=== PATIENT | female | born 1995 | race American Indian/Alaskan Native ===

== ENCOUNTER 2018-05-29 10:54 | Inpatient (IN) | payer OTHER ==
[2018-05-29 13:52] LABS: Basophils # (Auto) 0.1 K/mm3 (0.0-0.1); Basophils % (Auto) 0.6 % (0.0-1.8); Eosinophils # (Auto) 0.1 K/mm3 (0.0-0.4); Eosinophils % (Auto) 1.1 % (0.0-4.3); Hematocrit 29.4 % (30.3-42.9); Hemoglobin 10.1 gm/dl (10.1-14.3); Lymphocytes # (Auto) 2.3 K/mm3 (1.2-5.4); Lymphocytes % (Auto) 23.5 % (13.4-35.0); Mean Corpuscular HGB Conc 34 % (30-34); Mean Corpuscular Hemoglobin 28 pg (28-32); Mean Corpuscular Volume 83 fl (79-97); Monocytes # (Auto) 0.5 K/mm3 (0.0-0.8); Monocytes % (Auto) 5.3 % (0.0-7.3); Platelet Count 295 K/mm3 (140-440); Red Blood Count 3.56 M/mm3 (3.65-5.03); Red Cell Distribution Width 15.9 % (13.2-15.2)
--- NOTE | 2018-05-29 15:03 | History and Physical Report ---
History of Present Illness Date of examination: 05/29/18 Date of admission: 05/29/18 10:55 Chief complaint: contractions History of present illness: This is a 22 yo at 37 weeks by US availale here 39 weeks by reported EDC per patient performed at [facility]. SHe has no care. She states that she has had contractions since this am. No other complaints. Denies any leaking nor vaginal bleeding. Past History Past Medical History: no pertinent history Past Surgical History: no surgical history Family/Genetic History: none Social history: single. denies: smoking, alcohol abuse, prescription drug abuse - Obstetrical History : 3 Para: 2 Hx # Term Pregnancies: 2 Number of Pregnancies: 0 Spontaneous Abortions: 0 Induced : 0 Number of Living Children: 2 Medications and Allergies Allergies Allergy/AdvReac Type Severity Reaction Status Date / Time No Known Allergies Allergy Unverified 05/27/13 18:14 Review of Systems All systems: negative Genitourinary: contractions - Vital Signs Vital signs: Vital Signs Pulse BP 82 124/67 05/29/18 12:24 05/29/18 12:24 Temp Pulse Resp BP Pulse Ox 82 124/67 05/29/18 12:24 05/29/18 12:24 - Physical Exam Breasts: Positive: normal Cardiovascular: Regular rate, Normal S1 Lungs: Positive: Clear to auscultation, Normal air movement Abdomen: Positive: normal appearance, soft, distention, normal bowel sounds Genitourinary (Female): Positive: normal external genitalia, normal perenium Vulva: both: normal Vagina: Positive: normal moisture Cervix: Negative: lesion Uterus: Positive: normal size Adnexa: both: normal Anus/Rectum: Positive: normal perianal skin Extremities: Positive: normal Deep Tendon Reflex Grade: Normal +2 - Obstetrical FHR: category 1 Cervical Dilatation: 4 Cervical Effacement Percentage: 80 station: -1 Uterine Contraction Pattern: Regular Uterine Tone Measurement Phase: Contraction Uterine Contraction Intensity: Moderate Results Result Diagrams: 05/29/18 13:31 Abnormal lab results 05/29/18 Range/Units 13:31 RBC 3.56 L (3.65-5.03) M/mm3 Hct 29.4 L (30.3-42.9) % RDW 15.9 H (13.2-15.2) % All other labs normal. Assessment and Plan IUP 37 weeks vertex labs sent ( and drug screen) GBS unknown _ ampicillin ordered stat expect vaginal delivery offer epidural
[2018-05-29] MEDS ORDERED: POLYCILLIN/NS 2 GM/100 ML 2 GM/100 ML BAG IV ONE (15:22)
[2018-05-29] MEDS ORDERED: SUBLIMAZE ONE ×2 (15:22→16:17)
[2018-05-29] MEDS ORDERED: LACTATED RINGERS 1,000 ML ONE (15:22)
[2018-05-29] MEDS ORDERED: PITOCin/NS 20 UNIT/1000ML DRIP 20,000 MILLIUNITS/1,000 ML BAG IV ONE (16:30)
[2018-05-29] MEDS ORDERED: MINERAL OIL ONE (16:30)
[2018-05-29] MEDS ORDERED: BENADRYL PO PRN (16:36)
[2018-05-29] MEDS ORDERED: TORADOL IV PRN (16:36)
[2018-05-29] MEDS ORDERED: MILK OF MAGNESIA PO PRN (16:36)
[2018-05-29] MEDS ORDERED: PHENERGAN PO PRN (16:36)
[2018-05-29] MEDS ORDERED: PHENERGAN PR PRN (16:36)
[2018-05-29] MEDS ORDERED: DULCOLAX PR PRN (16:36)
[2018-05-29] MEDS ORDERED: ZOFRAN IV PRN (16:36)
[2018-05-29] MEDS ORDERED: PERCOCET 5/325 PO PRN (16:36)
[2018-05-29] MEDS ORDERED: TYLENOL PO PRN (16:36)
[2018-05-29] MEDS ORDERED: TUCKS PAD TP PRN (16:36)
[2018-05-29] MEDS ORDERED: NORCO 5/325 PO PRN (16:36)
[2018-05-29] MEDS ORDERED: LANSINOH TP PRN (16:36)
--- NOTE | 2018-05-29 16:47 | Procedure Note ---
OB Delivery Note - Delivery Date of Delivery: 05/29/18 Surgeon: PAO [place] Estimated blood loss: 500cc - Vaginal Delivery presentation: vertex Delivery position: OA Intrapartum events: no care, meconium Delivery induction: none Delivery monitor: none Route of delivery: Delivery placenta: spontaneous Episiotomy: none Delivery laceration: none Anesthesia: none Delivery comments: Patient was noted to be c/c/ +1 station and pushing. She delivered a viable male within sac at 1630 . The cord was clamped and cut and baby handed off to awaiting nurse. The placenta delivered intact meconium stained at 1638 . Apgars 8 and 9. Weight of the baby is 7 pounds 2.7 oz . No lacerations noted. patient tolerated procedure well and bonding with baby. - A at 1 minute: 8 at 5 minutes: 9 Gender: Male
[2018-05-29] MEDS ORDERED: PITOCin/NS 20 UNIT/1000ML DRIP 20 UNITS/1,000 ML BAG IV SCH (17:00)
[2018-05-29] MEDS ORDERED: SODIUM CHLORIDE FLUSH SYRINGE 10 ML IV SCH (17:00)
[2018-05-29] MEDS ORDERED: METHERGINE IM ONE ×2 (17:03→17:05)
[2018-05-29] MEDS: MOTRIN PO SCH ×2 (17:09→23:15)
[2018-05-29 17:52] LABS: Amphetamine Screen,Urine PRESUMPTIVE NEGATIVE; Benzodiazepines Screen,Urine PRESUMPTIVE NEGATIVE; Cocaine Screen,Urine PRESUMPTIVE NEGATIVE; Methadone Screen,Urine PRESUMPTIVE NEGATIVE; Opiate Screen,Urine PRESUMPTIVE NEGATIVE
[2018-05-29 18:07] LABS: Cannabinoid Screen,Urine PRESUMPTIVE POSITIVE
[2018-05-29] MEDS: COLACE PO SCH (23:15)
[2018-05-30 04:24] LABS: Hematocrit 29.2 % (30.3-42.9); Hemoglobin 9.6 gm/dl (10.1-14.3)
[2018-05-30] MEDS: MOTRIN PO SCH ×3 (05:31→23:11)
[2018-05-30] MEDS ORDERED: BOOSTRIX IM ONE (06:00)
--- NOTE | 2018-05-30 07:54 | Ultrasound Report ---
OB ULTRASOUND History no care. Technique: Transabdominal ultrasound with Doppler interrogation. Gestation: Single Position: Cephalic Amniotic Fluid: Normal ABDIAS = 14.0 cm Placenta: Posterior Placental Grade: 3 Heart Rate: 134 BPM Cervical length: 3.7 cm (Normal > 3 cm) NEUROANATOMY VISUALIZED: Choroid Plexus Lateral Ventricle ANATOMY VISUALIZED: Stomach Kidneys Bladder Diaphragm 4 Chamber Heart Heart SPINE VISUALIZED: Longitudinal The following are not demonstrated due to maternal body habitus or lie: Cisterna magnum, cerebellum, 3 vessel cord, umbilical cord insertion, transverse views of the spine BPD: 8.9 cm = 36 w 3 d HC: 33.5 cm = 38 w 2 d AC: 32.7 cm = 36 w 4 d FL: 7.3 cm = 37 w 1 d HC/AC Ratio: 1.02 Cephalic Index: 76.5 Estimated Weight: 3067 grams Clinical age = 39 w 6 d EDC: 05/30/18 US Gest. Age = 37 w 1 d EDC: 06/18/18 IMPRESSION: Viable, single intrauterine as described.
[2018-05-30] MEDS: PRENATAL VITAMIN PO SCH (10:45)
[2018-05-30] MEDS: COLACE PO SCH ×2 (10:45→23:11)
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
[2018-05-30] MEDS ORDERED: M-M-R II VACCINE SUB-Q ONE (16:36)
[2018-05-31] MEDS: MOTRIN PO SCH ×2 (05:26→12:31)
--- NOTE | 2018-05-31 09:48 | Progress Note ---
Assessment and Plan A: PPD#2 s/p at term No care H/o depressions cleared by Psych for outpatient follow up, no suicidal or homicidal ideation P: Routine care. Subjective - Subjective Date of service: 05/31/18 Principal diagnosis: s/p at term, no care Interval history: Pt denies complaints presently. She is smiling during interview. Baby taken to NICU because of jaundice. Patient reports: appetite normal, voiding normally, pain well controlled, ambulating normally [place]: in NICU Objective - Vital Signs Latest vital signs: Vital Signs Temp Pulse Resp BP Pulse Ox 05/30/18 23:34 98.5 F 74 18 118/65 99 Intake and Output 05/30/18 05/31/18 05/31/18 22:59 06:59 14:59 Intake Total 360 240 Balance 360 240 Intake: Oral 240 Intake, Free Water 360 Other: Total, Intake Amount 240 # Voids Void 2 1 - Exam Breasts: Present: deferred Cardiovascular: Present: Regular rate Lungs: Present: Clear to auscultation Abdomen: Present: soft Uterus: Present: fundal height below umbilicus Extremities: Present: edema (trace)
--- NOTE | 2018-05-31 10:05 | Discharge Summary ---
Providers - Providers Date of Admission: 05/29/18 10:55 Date of discharge: 05/31/18 Attending physician: PAO NY MD 05/29/18 21:57 Consult to Case Management [CONS] Routine Services Needed at Discharge: Planning Aide Notified:: Ext [phone] Phone number called:: [phone] Was contact made?: No Additional Physician Instructions: No care & positive UDS. 05/30/18 11:31 psychiatry consult [Consult to Mental Health] [CONS] Stat Reason For Exam: Patient said to gladys that she is suicidal. Place consult to:: Mental health Dept. Notified:: Mary Phone number called:: [phone] Was contact made?: Yes Time called:: 11:38 Primary care physician: PAO NY MD Hospitalization Reason for admission: active labor Delivery: Procedure details: Please see delivery note. Episiotomy: none Laceration: none Other procedures: none complications: none Discharge diagnosis: IUP at term delivered baby: male Hospital course: Pt was admitted in labor and went on to deliver a viable male via at term. Her course was uncomplicated and she met discharge criteria on PPD#2. She will follow up in 1 week for depression follow up. Condition at discharge: Stable Disposition: DC-01 TO HOME OR SELFCARE - Discharge Diagnoses (1) Term of male Status: Acute (2) Anemia Status: Acute Qualifiers: Anemia type: unspecified type Qualified Code(s): D64.9 - Anemia, unspecified Plan - Discharge Medications Prescriptions: Ferrous Sulfate 325 mg PO BID #60 tablet. Ibuprofen [Motrin] 600 mg PO Q8H PRN #30 tablet PRN Reason: Pain oxyCODONE /ACETAMINOPHEN [Percocet 5/325] 1 tab PO Q6HR PRN #30 tablet PRN Reason: Pain - Provider Discharge Summary Activity: routine, no sex for 6 weeks, no heavy lifting 4 weeks, no strenuous exercise Diet: routine Instructions: routine Additional instructions: [] Smoking cessation referral if applicable(refer to patient education folder for contact #) [] Refer to [facility] Booklet Call your doctor immediately for: * Fever > 100.5 * Heavy vaginal bleeding ( >1 pad per hour) * Severe persistent headache * Shortness of breath * Reddened, hot, painful area to leg or breast * Drainage or odor from incision. * Keep incision clean and dry at all times and follow doctor's instructions regarding bathing/showering - Follow up plan Follow up: PAO NY MD [Primary Care Provider] - 7 Days
[2018-05-31 10:38] VITALS: BP 108/67
[2018-05-31] MEDS: COLACE PO SCH (12:31)
[2018-05-31] MEDS: PRENATAL VITAMIN PO SCH (12:31)
== END 2018-05-31 17:03 | disposition home or self-care (01) | DRG 775 ==
LOC: TRG 10:54 → LD 10:55 → TRG 12:00 → OB 19:46
PROVIDERS: ADMIT Obstetrics & Gynecology; ATTEND Obstetrics & Gynecology
PROC: 10E0XZZ Delivery of Products of Conception, External Approach (ICD-10-PCS; principal; 2018-05-29)
PROC: 3E0234Z Introduction of Serum, Toxoid and Vaccine into Muscle, Percutaneous Approach (ICD-10-PCS; 2018-05-29)
DX: O77.0 Labor and delivery complicated by meconium in amniotic fluid (principal); O99.325 Drug use complicating the puerperium; Z3A.37 37 weeks gestation of pregnancy; Z37.0 Single live birth; Z23 Encounter for immunization; O90.81 Anemia of the puerperium; D64.9 Anemia, unspecified; F12.10 Cannabis abuse, uncomplicated; O99.344 Other mental disorders complicating childbirth; F32.9 Major depressive disorder, single episode, unspecified
CPT/HCPCS: 36415; 76805; 80307; 85014; 85018; 85025; 86592; 86706; 86762; 86850; 86900; 86901; 87806; 88307; J0290; J2210; J2590; J3010; J7120